=== PATIENT | female | born 1985 | race Caucasian/White ===

== ENCOUNTER 2017-01-08 18:22 | Outpatient (CLI) | payer BC ==
[~2017-01-08] VITALS: Ht 162.6 cm
[2017-01-08] MEDS ORDERED: PRENATAL 1+1)(P1 TAB PO (19:05)
[2017-01-08 20:06] LABS: BASOPHIL # 0.1 K/uL (0.0-0.2); BASOPHIL % 0.5 %; EOSINOPHIL # 0.2 K/uL (0.0-0.5); EOSINOPHIL % 1.6 %; HEMATOCRIT 36.2 % (33.0-46.0); HEMOGLOBIN 12.6 g/dL (11.0-15.0); IMMATURE GRANULOCYTE # 0.2 K/uL (0.0-0.3); IMMATURE GRANULOCYTE % 1.7 %; LYMPHOCYTE # 1.6 K/uL (0.8-4.0); LYMPHOCYTE % 16.6 %; MCH 31.8 pg (27.0-34.0); MCHC 34.8 gm/dL (32.0-36.5); MCV 91.4 fl (83.0-98.0); MONOCYTE # 0.9 K/uL (0.0-1.0); MONOCYTE % 8.8 %; MPV 12.6 fl (9.4-12.4); NEUTROPHIL # (ANC) 6.8 K/uL (1.8-7.8); NEUTROPHIL % 70.8 %; NRBC % 0 /100WBC (0-0.00); PLATELET COUNT 169 K/uL (150-450); RBC 3.96 M/uL (3.50-5.00); RDW-CV 12.9 % (11.9-14.6); WBC 9.6 K/uL (4.0-11.0)
== END 2017-01-09 14:25 | disposition disaster alternative care site (69) ==
LOC: GOBM 18:22 → GOBS 18:23 → GOBM 01-09 14:25
PROVIDERS: Family Medicine
DX: O61.0 Failed medical induction of labor (principal); Z3A.38 38 weeks gestation of pregnancy; O24.419 Gestational diabetes mellitus in pregnancy, unspecified control
CPT/HCPCS: G0463; J2001; J2540; J2590; J7120

== ENCOUNTER 2017-01-11 06:30 | Inpatient (IN) | payer BC ==
[~2017-01-11] VITALS: Ht 162.6 cm; Wt 83.1 kg
--- NOTE | ~2017-01-11 | OR ---
PATIENT'S NAME: LYDIA BOWSER [facility] AGE: 31 Y [address] ROOM: [address] [address] LOCATION: [facility] ADMIT DATE: 01/11/2017 OR/Procedure Report DISCHARGE DATE: FAMILY PHYSICIAN: KARLI SOLOMON MD ATTENDING PHYSICIAN: KARLI SOLOMON SURGEON: Karli Solomon MD CREW BOSS: None. DATE OF PROCEDURE: 01/12/2017 PREOPERATIVE DIAGNOSES: 37 and 2/7th weeks' intrauterine present for induction of labor with White's class A1, gestational diabetes mellitus, as well as GBS positive status. POSTOPERATIVE DIAGNOSES: 37 and 2/7th weeks' intrauterine present for induction of labor with white class A1, gestational diabetes mellitus, as well as GBS positive status with delivery of viable female infant at 0218 hours weighing 7 pounds 14 ounces with scores of 8 at 1 minute and 8 at 5 minutes. PROCEDURE: Vaginal delivery with induction of labor by Pitocin. ANESTHESIA: Epidural. ESTIMATED BLOOD LOSS: 300 mL. INDICATIONS: This 31-year-old G1, P0, presents at 39 and 2/7th weeks' gestation by LMP and first trimester ultrasound with EDC of 01/16/2017 for induction of labor due to her gestational diabetes. course was complicated by gestational diabetes and group B strep positive status. lab data includes blood type O positive with a negative antibody screen, rubella immune, VDRL nonreactive, hep B surface antigen negative, HIV nonreactive, GBS positive. She presented for induction of labor on 01/11/2017 and was found to be 2 cm, 75% effaced, and -1 station at that point in time. She had appropriate antibiotics started. heart rate was reactive and reassuring. She remained normotensive throughout the course of her labor. The patient was started on Pitocin and was progressively increased until she had spontaneous rupture of membranes around 1830. At that time, her cervix was 2-3, 90%, and -1. Epidural was placed shortly thereafter for anesthesia. She did ultimately progressed to complete by 2331 hours and was allowed to labor down. She started pushing at 0041 hours eventually bringing the infant vertex to the perineum. DESCRIPTION OF PROCEDURE: The patient was noted to be complete and pushing, so she was placed in dorsal lithotomy position, prepped and draped in usual sterile fashion for a vaginal delivery. The patient was asked to push and the head was delivered spontaneously in the OA position over an intact perineum. PATIENT'S NAME: LYDIA BOWSER [facility] AGE: 31 Y [address] ROOM: [address] [address] LOCATION: [facility] ADMIT DATE: 01/11/2017 OR/Procedure Report DISCHARGE DATE: FAMILY PHYSICIAN: KARLI SOLOMON MD ATTENDING PHYSICIAN: KARLI SOLOMON Nuchal cord was checked for and none was noted. The patient pushed and eventually the anterior shoulder was delivered and the posterior shoulder closely followed. At that time, it was noted that there was significant meconium. Infant was noted to be somewhat stunned at that time. The cord was clamped x2 and cut and noted to have two arteries and one vein. The was passed along to the warmer where I attended the resuscitation as well as the mother. The did respond well to stimulation as well as nasopharyngeal suction. Eventually, there was good cry and scores were noted to be of 8 and 8 at 1 and 5 minutes respectively. Placenta was delivered spontaneously and uterus was not explored. 20 units of Pitocin was placed in the IV bag to firm up the uterus. Examination of the cervix and vaginal vault revealed a first degree midline vaginal laceration that did appear to be bleeding. It was repaired with 3-0 Vicryl in a normal fashion. There was good hemostasis and cosmesis at the end of that laceration repair. The patient overall tolerated procedure well and was recovered in Labor and Delivery with her infant. All sponge and needle counts were correct. KARLI SOLOMON MD BAB/modl /[id number] d: 01/12/17 0355 t: 01/20/17 0805, OPERATIVE SUMMARY
[~2017-01-11 06:30] MED LIST: PRENATAL 1+1)(P1 TAB PO
[2017-01-11 07:25] LABS: BASOPHIL # 0.1 K/uL (0.0-0.2); BASOPHIL % 0.6 %; EOSINOPHIL # 0.2 K/uL (0.0-0.5); EOSINOPHIL % 1.6 %; HEMATOCRIT 39.5 % (33.0-46.0); HEMOGLOBIN 13.6 g/dL (11.0-15.0); IMMATURE GRANULOCYTE # 0.2 K/uL (0.0-0.3); LYMPHOCYTE # 1.3 K/uL (0.8-4.0); LYMPHOCYTE % 13.2 %; MCH 31.4 pg (27.0-34.0); MCHC 34.4 gm/dL (32.0-36.5); MCV 91.2 fl (83.0-98.0); MONOCYTE # 0.8 K/uL (0.0-1.0); MONOCYTE % 7.8 %; MPV 12.9 fl (9.4-12.4); NEUTROPHIL # (ANC) 7.2 K/uL (1.8-7.8); NEUTROPHIL % 74.8 %; NRBC % 0 /100WBC (0-0.00); PLATELET COUNT 163 K/uL (150-450); RBC 4.33 M/uL (3.50-5.00); RDW-CV 12.9 % (11.9-14.6); WBC 9.6 K/uL (4.0-11.0)
[2017-01-13 05:22] LABS: BASOPHIL # 0.1 K/uL (0.0-0.2); BASOPHIL % 0.6 %; EOSINOPHIL # 0.2 K/uL (0.0-0.5); EOSINOPHIL % 2.4 %; HEMOGLOBIN 11.5 g/dL (11.0-15.0); IMMATURE GRANULOCYTE # 0.1 K/uL (0.0-0.3); IMMATURE GRANULOCYTE % 1.3 %; LYMPHOCYTE # 2.1 K/uL (0.8-4.0); MCH 32.1 pg (27.0-34.0); MCHC 34.8 gm/dL (32.0-36.5); MCV 92.2 fl (83.0-98.0); MONOCYTE # 0.9 K/uL (0.0-1.0); MONOCYTE % 9.1 %; MPV 12.9 fl (9.4-12.4); NEUTROPHIL # (ANC) 6.4 K/uL (1.8-7.8); NEUTROPHIL % 65.6 %; NRBC % 0 /100WBC (0-0.00); PLATELET COUNT 136 K/uL (150-450); RBC 3.58 M/uL (3.50-5.00); RDW-CV 13.2 % (11.9-14.6); WBC 9.8 K/uL (4.0-11.0)
[2017-01-14] MEDS ORDERED: MOTRIN800 MG PO (09:16)
[2017-01-14] MEDS ORDERED: SURFAK240 MG PO (09:16)
== END 2017-01-14 12:25 | disposition disaster alternative care site (69) | DRG 775 ==
LOC: GOBS 06:30 → GOBM 06:30 → GOBS 06:31 → GOBM 06:31 → GOBS 01-14 12:25
PROVIDERS: ADMIT Family Medicine
PROC: 3E033VJ Introduction of Other Hormone into Peripheral Vein, Percutaneous Approach (ICD-10-PCS; principal; 2017-01-12)
PROC: 0HQ9XZZ Repair Perineum Skin, External Approach (ICD-10-PCS; principal; 2017-01-12)
PROC: 10E0XZZ Delivery of Products of Conception, External Approach (ICD-10-PCS; principal; 2017-01-12)
DX: O24.420 Gestational diabetes mellitus in childbirth, diet controlled (principal); O99.824 Streptococcus B carrier state complicating childbirth; O77.0 Labor and delivery complicated by meconium in amniotic fluid; O70.0 First degree perineal laceration during delivery; Z3A.37 37 weeks gestation of pregnancy; Z37.0 Single live birth
CPT/HCPCS: J2001; J2540; J2590; J3010; J7120